=== PATIENT | female | born 1965 ===

== ENCOUNTER 2024-10-20 10:00 | Inpatient (IN) | payer OTHER ==
[~2024-10-20] VITALS: Ht 167.6 cm; Wt 78.0 kg
[2024-10-20] MEDS ORDERED: COZAAR25 MG PO (12:03)
[2024-10-20] MEDS ORDERED: TRULICITY4.5 MG/0.5 (12:03)
[2024-10-20] MEDS ORDERED: GRALISE600 MG PO (12:04)
[2024-10-20] MEDS ORDERED: GLIPIZIDE10 MG PO (12:04)
[2024-10-20] MEDS ORDERED: SYNJARDY XR 121 EACH PO (12:04)
[2024-10-20] MEDS ORDERED: SINGULAIR10 MG PO (12:05)
[2024-10-20] MEDS ORDERED: CARAFATE1 GM PO (12:05)
[2024-10-20 12:12] VITALS: BP 136/78
[2024-10-20 13:16] LABS: RH POSITIVE
[2024-10-24] MEDS ORDERED: METRONIDAZOLE/SODIUM CHLORIDE 500 MG/100 ML PIGGYBACK IV ONE (11:57)
[2024-10-24] MEDS ORDERED: CEFTRIAXONE SODIUM 2,000 MG VIAL ONE (11:57)
[2024-10-24] MEDS ORDERED: SUGAMMADEX SODIUM 200 MG/2 ML VIAL IV ONE (13:43)
[2024-10-24] MEDS ORDERED: MORPHINE SULFATE 4 MG/ML CARTRIDGE IV PRN (13:45)
[2024-10-24] MEDS ORDERED: ONDANSETRON HCL 2 MG/ML VIAL IV PRN (13:45)
[2024-10-24] MEDS ORDERED: OxyCODONE HCL/APAP UD (PERCOCET) PO PRN (13:45)
[2024-10-24] MEDS ORDERED: DEXTROSE 50 % IN WATER 0.5 G/ML DISP.SYRIN IV PRN (13:45)
[2024-10-24] MEDS ORDERED: RINGERS SOLUTION,LACTATED 1,000 ML IV SCH (13:45)
[2024-10-24] MEDS ORDERED: MORPHINE SULFATE 4 MG/ML VIAL IV ONE ×2 (15:00→17:00)
[2024-10-24] MEDS ORDERED: GABAPENTIN 800 MG TABLET PO SCH (17:00)
[2024-10-24] MEDS ORDERED: POLYETHYLENE GLYCOL 3350 17 GM BLIST.PACK PO SCH (17:00)
[2024-10-24 17:14] LABS: HEMATOCRIT 35.1 % (36.0-45.00); HEMOGLOBIN 10.9 g/dL (12.0-15.00); MEAN CELL VOLUME 72.9 fL (80.00-100.00); MEAN CORPUSCULAR HEMOGLOBIN 22.7 pg (27.00-32.0); MEAN CORPUSCULAR HGB CONC 31.1 g/dl (32.0-36.0); PLATELET COUNT 334 K/uL (150-450); RED BLOOD COUNT 4.82 M/uL (4.00-6.00); RED CELL DISTRIBUTION WIDTH 16.6 % (11.5-14.5)
[2024-10-24 17:17] LABS: ALBUMIN 3.6 gm/dL (3.4-5.0); CALCIUM 9.2 mg/dL (8.5-10.1); CREATININE SERUM 0.74 mg/dL (0.55-1.02); GFR 80.89; MAGNESIUM 1.9 mg/dL (1.8-2.4); PHOSPHOROUS 4.1 mg/dL (2.5-4.9); POTASSIUM 4.32 mEq/L (3.5-5.1)
[2024-10-24 18:13] VITALS: BP 140/69; O2SAT 98
[2024-10-24] MEDS ORDERED: FAMOTIDINE/PF 20 MG/2 ML VIAL IV PUSH SCH (21:00)
[2024-10-25 00:34] VITALS: BP 143/79; O2SAT 100
[2024-10-25 06:23] LABS: HEMATOCRIT 35.1 % (36.0-45.00); HEMOGLOBIN 11.1 g/dL (12.0-15.00); MEAN CELL VOLUME 72.6 fL (80.00-100.00); MEAN CORPUSCULAR HEMOGLOBIN 22.9 pg (27.00-32.0); MEAN CORPUSCULAR HGB CONC 31.5 g/dl (32.0-36.0); PLATELET COUNT 332 K/uL (150-450); RED BLOOD COUNT 4.83 M/uL (4.00-6.00); RED CELL DISTRIBUTION WIDTH 16.3 % (11.5-14.5)
[2024-10-25 06:54] LABS: ALBUMIN 3.3 gm/dL (3.4-5.0); CALCIUM 9.3 mg/dL (8.5-10.1); CREATININE SERUM 0.58 mg/dL (0.55-1.02); GFR 107.15; PHOSPHOROUS 4.3 mg/dL (2.5-4.9); POTASSIUM 4.23 mEq/L (3.5-5.1)
[2024-10-25] MEDS ORDERED: MEPERIDINE HCL/PF 25 MG/ML VIAL IM STA (07:57)
[2024-10-25] MEDS ORDERED: LOSARTAN POTASSIUM 25 MG TABLET PO SCH (09:00)
[2024-10-25] MEDS ORDERED: LACTOBACILLUS ACIDOPHILUS 1 CAP CAP PO SCH (09:00)
[2024-10-25] MEDS ORDERED: LANSOPRAZOLE 30 MG CAPSULE PO SCH (09:00)
[2024-10-25 09:39] VITALS: BP 121/72; O2SAT 97
[2024-10-25] MEDS ORDERED: ENOXAPARIN SODIUM 40 MG/0.4 ML SYRINGE SUBCUTANEO SCH (17:00)
[2024-10-25] MEDS ORDERED: MONTELUKAST SODIUM 10 MG TABLET PO SCH (17:00)
== END 2024-10-25 10:54 | disposition home or self-care (01) | DRG 330 ==
LOC: O/R 10-24 07:50 → SURH 10-24 09:45 → SURG 10-24 15:56
PROVIDERS: ADMIT Colon & Rectal Surgery; ATTEND Colon & Rectal Surgery
PROC: 0DNW4ZZ Release Peritoneum, Percutaneous Endoscopic Approach (ICD-10-PCS; 2024-10-24)
PROC: 0DNU4ZZ Release Omentum, Percutaneous Endoscopic Approach (ICD-10-PCS; 2024-10-24)
PROC: 0DN84ZZ Release Small Intestine, Percutaneous Endoscopic Approach (ICD-10-PCS; 2024-10-24)
PROC: 0DBH4ZZ Excision of Cecum, Percutaneous Endoscopic Approach (ICD-10-PCS; principal; 2024-10-24 09:45)
DX: D12.1 Benign neoplasm of appendix (principal); K56.51 Intestinal adhesions [bands], with partial obstruction; D49.0 Neoplasm of unspecified behavior of digestive system; K63.5 Polyp of colon